=== PATIENT | male | born 1935 | race Caucasian/White ===

== ENCOUNTER 2016-08-07 23:00 | Inpatient (IN) | payer MEDICARE, OTHER ==
--- NOTE | ~2016-08-07 | HP ---
History And Physical [address] [place]. [address] NAME: HYUN SWEENEY JR : 35 STATUS : ADM Ivan PAT#: [id number] AGE: 80 ADM/REG DATE : 08/07/16 MR#: [id number] REPORT SERV DATE: 08/09/16 DICTATED BY: PING ROMERO JR. DATE: 08/08/16 REPORT STATUS : Draft TRANSCRIBED BY: JAZMIN DATE: 08/08/16 DATE OF ADMISSION: 08/07/2016 CHIEF COMPLAINT: Abdominal pain. HISTORY OF PRESENT ILLNESS: This is an 80-year-old male. He presented to the emergency department with complaints of abdominal pain for several days. There was no vomiting, diarrhea. He had imaging which includes a CT scan which showed a large gallstone with evidence of acute cholecystitis. He did have elevated white count, elevated bilirubin. He was admitted, given IV fluids, he had persistent pain and operation was indicated. PAST MEDICAL HISTORY: Remarkable for history of hypertension. PAST SURGICAL HISTORY: Hernia surgery. MEDICATIONS: Listed and reviewed. SOCIAL HISTORY: He does not smoke or drink. REVIEW OF SYSTEMS: He has had some weakness. HEENT: Negative. Neuro: Negative. Skin: Negative. Respiratory: Negative. CV: Negative. GI: As above. : Negative. Musculoskeletal: Negative. PHYSICAL EXAMINATION: GENERAL: Shows an elderly male, who is in some distress. HEAD AND NECK: Shows pupils equal, round, and reactive. There are no icteric changes. The mucous membranes are dry. NECK: Supple. There is no mass or thyromegaly. LUNGS: Clear bilaterally. CARDIOVASCULAR: Normal S2, S2 without murmur. ABDOMEN: Tender in the right upper quadrant. EXTREMITIES: Show no clubbing, cyanosis, or edema. NEUROLOGIC: Alert and oriented. No focal findings. Appropriate affect. IMPRESSION: Acute cholecystitis. PLAN: We will proceed with admission, give IV fluids, antibiotics, and likely proceed with surgery. Of note, he also has renal cyst. This will be followed. THEA/JAZMIN Ping Romero Jr., M.D. History And [address] [place]. [address] NAME: HYUN SWEENEY JR : 35 STATUS : ADM Ivan PAT#: [id number] AGE: 80 ADM/REG DATE : 08/07/16 MR#: [id number] REPORT SERV DATE: 08/09/16 DICTATED BY: PING ROMERO JR. DATE: 08/08/16 REPORT STATUS : Draft TRANSCRIBED BY: JAZMIN DATE: 08/08/16 / [id number] CC: Ping Romero Jr., M.D.
--- NOTE | ~2016-08-07 | OP ---
Record Of Operation [facility] [address] [place]. [address] NAME: HYUN SWEENEY JR : 35 STATUS : ADM Ivan PAT#: [id number] AGE: 80 ADM/REG DATE : 08/07/16 MR#: [id number] REPORT SERV DATE: 08/09/16 DICTATED BY: PING RAHMAN JR. DATE: 08/08/16 REPORT STATUS : Draft TRANSCRIBED BY: MODL DATE: 08/08/16 DATE OF PROCEDURE: 08/08/2016 SURGEON: Ping Rahman M.D. PERSONAL INJURY LAW SPECIALIST: Antonio De Paz. PROCEDURE: Laparoscopic cholecystectomy with intraoperative cholangiography. PREOPERATIVE DIAGNOSIS: Cholelithiasis with acute cholecystitis. POSTOPERATIVE DIAGNOSIS: Cholelithiasis with acute cholecystitis. ANESTHESIA: General. INDICATIONS: This patient had presented with acute abdominal pain. Imaging showed cholelithiasis. He also had elevated bilirubin. Cholecystectomy was indicated bile duct. FINDINGS: On exploration of the abdomen, there was evidence of acute cholecystitis with discoloration of gallbladder and probably early gangrenous changes. There was extensive inflammation. The cystic duct was somewhat enlarged. Intraoperative cholangiography was performed which showed free flow into the duodenal and proximal hepatic ducts. There was no evidence of defect or common duct stone. The gallbladder was entered during the dissection. There were multiple stones, somewhat clear bile superiorly, but it had also purulent material. Bile was submitted for cultures. The gallbladder was removed successfully. The area was thoroughly irrigated. Portion of the posterior wall had to be left in the gallbladder bed and this was thoroughly cauterized. A Aureliano drain was left in the gallbladder bed. DESCRIPTION OF PROCEDURE: With adequate general anesthesia, the patient was placed in supine position. The abdomen was prepped and draped sterilely. 0.5% Marcaine was used for local infiltration of all trocar sites. A supraumbilical incision was made. The dissection was carried down sharply through the subcutaneous tissues. The fascia and peritoneum were opened. The peritoneal cavity was entered. A balloon-tipped trocar was introduced and the abdomen was inflated with CO2. Under direct vision, a 10 mm trocar was placed in the epigastric region and then two 5 mm trocars in the subcostal region. Adhesions were taken off the gallbladder with sharp dissection, there was aspirated bile as noted. Then it was retracted. The cystic duct and artery were identified. The artery was doubly clipped and divided. The cystic duct was opened, an Arrow type cholangiogram catheter introduced and secured with a balloon and a clip. Hypaque was injected under C-arm fluoroscopy with above- noted findings. Then, the catheter was removed. The duct was doubly clipped and divided. Then, the gallbladder was removed from its bed with sharp and blunt dissection. It was placed in the Endopouch along with the stone fragments and extracted through the epigastric site and submitted to Pathology. The wound was irrigated thoroughly with saline and large bore suction was utilized to aspirate stone fragments that were left in the bed. Then the Record Of Operation [address] [address] NAME: HYUN SWEENEY : 35 STATUS : ADM Ivan PAT#: [id number] AGE: 80 ADM/REG DATE : 08/07/16 MR#: [id number] REPORT SERV DATE: 08/09/16 DICTATED BY: PING RAHMAN JR. DATE: 08/08/16 REPORT STATUS : Draft TRANSCRIBED BY: JAZMIN DATE: 08/08/16 bed was thoroughly cauterized with electrocautery and the remaining bed to control bleeding. Additionally, Surgiflo was placed and a 19 Aureliano drain was left in the gallbladder bed and brought through the most lateral trocar site. It was secured with nylon suture. Then, after thorough irrigation, assurance of no leak, the trocar was removed. The epigastric and umbilical sites were closed at the fascial layer with [id number] of 0 PDS. All wounds were then closed with dermal Monocryl. Sterile dressings were applied. The patient left the operating room in satisfactory condition. ESTIMATED BLOOD LOSS: 30 mL. THEA/JAZMIN Ping Rahman Jr., M.D. / [id number] CC: Ping Rahman Jr., M.D.
[~2016-08-07 23:00] MED LIST: ASAB PO; BEANO PO; CLARIT10 PO; COZ50 PO; IMOD PO; K-TABS10 MEQ PO; LIPITOR10 PO; MULTIVITAMI1 PO; POTASSIUM95 MG PO; PRIN10 PO; XANAX XR0.5 MG PO; XYZAL5 MG PO
[2016-08-08 00:13] LABS: BASOPHILS 0.1 %; BASOPHILS ABSOLUTE 0.03 10/3/uL (0.0-0.16); EOSINOPHILS 0.2 %; EOSINOPHILS ABSOLUTE 0.04 10/3/uL (0.0-0.53); ER CBC TAT 0 Hrs 00 Mins; HEMOGLOBIN 15.2 g/dL (13.6-17.8); IMMATURE GRANULOCYTES 0.5 %; MEAN CORPUS HGB CONC 35.3 g/dL (32.0-36.0); MEAN CORPUSCULAR VOLUME 90.5 fL (80-100); MEAN PLATELET VOLUME 11.1 fL (9.2-13.0); MONOCYTES 6.4 %; MONOCYTES ABSOLUTE 1.28 10/3/uL (0.21-1.20); NEUTROPHILS 85.8 %; NEUTROPHILS ABSOLUTE 17.22 10/3/uL (2.02-8.40); PLATELET COUNT 159 10/3/uL (150-400); RBC DISTRIBUTION WIDTH 13.4 % (12.0-16.0); RED CELL COUNT 4.75 10/6/uL (4.7-6.1); WHITE BLOOD CELLS 20.1 10/3/uL (4.5-10.5)
[2016-08-08 00:15] LABS: MANUAL DIFF NO %
[2016-08-08 00:22] LABS: INTERNATIONAL NORMAL RATI 1.2 UNITS (-); PARTIAL THROMBO TIME 32.1 SEC (22.5-37.2); PROTIME (NOT ORD) 15.5 SEC (12.0-14.5)
[2016-08-08 00:33] LABS: CALCIUM, SERUM 8.3 MG/DL (8.5-10.4); CHEST PAIN PROFILE TAT 0 Hrs 00 Mins; CHLORIDE, SERUM 103 MMOL/L (96-112); CO2 (CARBON DIOXIDE) 24 MMOL/L (24-34); CREATININE 1.31 MG/DL (0.70-1.30); DIRECT BILIRUBIN 0.5 MG/DL (0.0-0.4); GFR AFRICAN AMERICAN 59 ML/MIN (>=60); GFR NON AFRICAN AMERICAN 51 ML/MIN (>=60); POTASSIUM, SERUM 3.6 MMOL/L (3.5-5.3); SGOT(AST) 33 U/L (5-40); SGPT(ALT) 35 U/L (5-65); SODIUM, SERUM 138 MMOL/L (135-148); TOTAL PROTEIN 6.7 G/DL (6.0-8.5); TROPONIN I 0.03 NG/ML (<0.05)
[2016-08-08 00:35] LABS: ALBUMIN 3.2 G/DL (3.5-5.0); ALKALINE PHOSPHATASE 74 U/L (45-117); BUN (BLOOD UREA NITROGEN) 27 MG/DL (6-23); GLUCOSE, SERUM 178 MG/DL (60-99); INDIRECT BILIRUBIN(NOT ORDER) 1.7 MG/DL (0.1-0.9); TOTAL BILIRUBIN 2.2 MG/DL (0-1.2)
[2016-08-08 02:18] LABS: ASCORBIC ACID (UR NOT ORDER) NEG (NEG); BILIRUBIN, URINE NEGATIVE (NEG); ER URINALYSIS TAT 0 Hrs 00 Mins; KETONE, URINE NEGATIVE (NEG); LEUKOCYTE ESTERASE(NOT OR NEG (NEG); NITRITE (URINE) NEG (NEG); WBC (NOT ORDERED) (RFLEX) 4 (0-5)
[2016-08-08] MEDS ORDERED: ASAB PO (02:39)
[2016-08-08] MEDS ORDERED: COZ50 PO (02:39)
[2016-08-08] MEDS ORDERED: IMOD PO (02:40)
[2016-08-08] MEDS ORDERED: PEPTO BISMOL LIQ1 ML PO (02:41)
[2016-08-08 08:37] LABS: BASOPHILS 0.1 %; BASOPHILS ABSOLUTE 0.02 10/3/uL (0.0-0.16); EOSINOPHILS 0.2 %; EOSINOPHILS ABSOLUTE 0.04 10/3/uL (0.0-0.53); HEMATOCRIT 40.4 % (40.0-51.0); HEMOGLOBIN 14.2 g/dL (13.6-17.8); IMMATURE GRANULOCYTES 0.5 %; IMMATURE GRANULOCYTES ABSOLUTE 0.08 10/3/uL (0.0-0.11); LYMPHOCYTES 5.8 %; LYMPHOCYTES ABSOLUTE 0.97 10/3/uL (0.67-4.30); MEAN CORPUS HGB CONC 35.1 g/dL (32.0-36.0); MEAN CORPUSCULAR HEMOGLOB 31.9 pg (26.0-34.0); MEAN CORPUSCULAR VOLUME 90.8 fL (80-100); MEAN PLATELET VOLUME 11.4 fL (9.2-13.0); MONOCYTES 4.6 %; MONOCYTES ABSOLUTE 0.76 10/3/uL (0.21-1.20); NEUTROPHILS 88.8 %; NEUTROPHILS ABSOLUTE 14.81 10/3/uL (2.02-8.40); PLATELET COUNT 151 10/3/uL (150-400); RBC DISTRIBUTION WIDTH 13.6 % (12.0-16.0); RED CELL COUNT 4.45 10/6/uL (4.7-6.1); WHITE BLOOD CELLS 16.7 10/3/uL (4.5-10.5)
[2016-08-08 08:38] LABS: MANUAL DIFF NO %
[2016-08-08 08:50] LABS: A/G RATIO 0.9 (0.7-1.9); ALKALINE PHOSPHATASE 78 U/L (45-117); BUN (BLOOD UREA NITROGEN) 27 MG/DL (6-23); CALCIUM, SERUM 7.7 MG/DL (8.5-10.4); CHLORIDE, SERUM 103 MMOL/L (96-112); CO2 (CARBON DIOXIDE) 24 MMOL/L (24-34); CREATININE 1.14 MG/DL (0.70-1.30); GFR AFRICAN AMERICAN 70 ML/MIN (>=60); GFR NON AFRICAN AMERICAN 60 ML/MIN (>=60); GLOBULIN 3.3 G/DL (2.5-4.1); GLUCOSE, SERUM 157 MG/DL (60-99); SGOT(AST) 28 U/L (5-40); SGPT(ALT) 32 U/L (5-65); SODIUM, SERUM 135 MMOL/L (135-148); TOTAL BILIRUBIN 1.9 MG/DL (0-1.2); TOTAL PROTEIN 6.3 G/DL (6.0-8.5)
[2016-08-09 06:06] LABS: BASOPHILS 0.1 %; BASOPHILS ABSOLUTE 0.01 10/3/uL (0.0-0.16); EOSINOPHILS 0 %; HEMATOCRIT 40.5 % (40.0-51.0); HEMOGLOBIN 14.1 g/dL (13.6-17.8); IMMATURE GRANULOCYTES 0.3 %; IMMATURE GRANULOCYTES ABSOLUTE 0.03 10/3/uL (0.0-0.11); LYMPHOCYTES 5.5 %; LYMPHOCYTES ABSOLUTE 0.54 10/3/uL (0.67-4.30); MANUAL DIFF NO %; MEAN CORPUS HGB CONC 34.8 g/dL (32.0-36.0); MEAN CORPUSCULAR HEMOGLOB 32.3 pg (26.0-34.0); MEAN CORPUSCULAR VOLUME 92.9 fL (80-100); MEAN PLATELET VOLUME 10.8 fL (9.2-13.0); MONOCYTES 5.2 %; MONOCYTES ABSOLUTE 0.51 10/3/uL (0.21-1.20); NEUTROPHILS 88.9 %; NEUTROPHILS ABSOLUTE 8.68 10/3/uL (2.02-8.40); PLATELET COUNT 145 10/3/uL (150-400); RBC DISTRIBUTION WIDTH 13.4 % (12.0-16.0); RED CELL COUNT 4.36 10/6/uL (4.7-6.1); WHITE BLOOD CELLS 9.8 10/3/uL (4.5-10.5)
[2016-08-09 06:20] LABS: ALKALINE PHOSPHATASE 70 U/L (45-117); BUN (BLOOD UREA NITROGEN) 24 MG/DL (6-23); CALCIUM, SERUM 7.9 MG/DL (8.5-10.4); CHLORIDE, SERUM 106 MMOL/L (96-112); CREATININE 1.19 MG/DL (0.70-1.30); GFR AFRICAN AMERICAN 66 ML/MIN (>=60); GFR NON AFRICAN AMERICAN 57 ML/MIN (>=60); POTASSIUM, SERUM 4.5 MMOL/L (3.5-5.3); SGPT(ALT) 47 U/L (5-65); SODIUM, SERUM 136 MMOL/L (135-148); TOTAL PROTEIN 6.1 G/DL (6.0-8.5)
[2016-08-09 06:21] LABS: CO2 (CARBON DIOXIDE) 19 MMOL/L (24-34); GLUCOSE, SERUM 265 MG/DL (60-99)
[2016-08-09 06:22] LABS: A/G RATIO 0.6 (0.7-1.9); ALBUMIN 2.3 G/DL (3.5-5.0); GLOBULIN 3.8 G/DL (2.5-4.1); SGOT(AST) 56 U/L (5-40); TOTAL BILIRUBIN 1.2 MG/DL (0-1.2)
[2016-08-10] MEDS ORDERED: NORCO1 TA1 PO (09:39)
== END 2016-08-10 11:36 | disposition home or self-care (01) | DRG 419 ==
LOC: ER 23:00 → 4SO 23:59
PROVIDERS: Emergency Medicine; Specialist
PROC: 0FT44ZZ Resection of Gallbladder, Percutaneous Endoscopic Approach (ICD-10-PCS; principal; 2016-08-08 15:15)
PROC: BF101ZZ Fluoroscopy of Bile Ducts using Low Osmolar Contrast (ICD-10-PCS; principal; 2016-08-08 15:15)
DX: K80.00 Calculus of gallbladder with acute cholecystitis without obstruction (principal); Z95.1 Presence of aortocoronary bypass graft; I10 Essential (primary) hypertension; I25.10 Atherosclerotic heart disease of native coronary artery without angina pectoris; F41.9 Anxiety disorder, unspecified; Z87.891 Personal history of nicotine dependence; Z88.0 Allergy status to penicillin; Z79.82 Long term (current) use of aspirin
CPT/HCPCS: 71010; 74176; 74300; 80048; 80053; 80076; 81001; 83690; 83735; 84484; 85025; 85610; 85730; 87015; 87070; 87075; 87077; 87102; 87116; 87186; 87205; 88304; 93005; 99285; A9270-GY; J0690; J1170; J1956; J2250; J2370; J2405; J2710; J3010; Q9967